=== PATIENT | male | born 1945 | race Caucasian/White ===

== ENCOUNTER → 2017-03-05 | Outpatient (CLI) | payer MEDICARE, BC ==
[~2017-03-05] MED LIST: REGADENOSON 0.4 MG/5 ML SYRINGE ONE
== END | disposition home or self-care (01) ==
LOC: CFH 08:12
PROVIDERS: ATTEND Internal Medicine Cardiovascular Disease
DX: I25.10 Atherosclerotic heart disease of native coronary artery without angina pectoris (principal); Z95.5 Presence of coronary angioplasty implant and graft
CPT/HCPCS: 78452; 93017; A9502; J2785

== ENCOUNTER → 2017-10-02 | Outpatient (CLI) | payer MEDICARE, BC ==
[~2017-10-02] MED LIST changes: +GADOBUTROL 7.5 MMOL/7.5 ML PFS ONE; -REGADENOSON 0.4 MG/5 ML SYRINGE ONE
== END | disposition home or self-care (01) ==
LOC: CFH 07:08
PROVIDERS: ATTEND Psychiatry & Neurology Neurology
DX: R41.3 Other amnesia (principal); Z98.890 Other specified postprocedural states
CPT/HCPCS: 70553; 82565; A9585

== ENCOUNTER → 2018-09-25 | Outpatient (CLI) | payer MEDICARE, BC ==
[~2018-09-25] MED LIST changes: +ASPI-496 PO; -GADOBUTROL 7.5 MMOL/7.5 ML PFS ONE; +LISI5TAB7 PO; +LOVA40TA2 PO; +METF500T17 PO; +METO50TA82 PO; +NITR0.4T SL; +OCTR50DI2 INJ; +OXYB15TA PO
[2018-09-25 10:04] LABS: BASOPHILS # (AUTO) 0.06 x10^3/uL (0-0.1); BASOPHILS % (AUTO) 1 % (0-1); EOSINOPHILS # (AUTO) 0.09 x10^3/uL (0-0.4); EOSINOPHILS % (AUTO) 1 % (1-7); LYMPHOCYTES # (AUTO) 1.48 x10^3/uL (1-3.4); LYMPHOCYTES % (AUTO) 20 % (22-44); MD NO; MEAN CORPUSCULAR HEMOGLOBIN 30.4 pg (27.5-34.5); MEAN CORPUSCULAR HGB CONC 32.9 g/dL (33.2-36.2); MEAN CORPUSCULAR VOLUME 92.4 fL (81-97); MEAN PLATELET VOLUME 9.6 fL (7.4-10.4); MONOCYTES # (AUTO) 0.69 x10^3/uL (0.2-0.8); MONOCYTES % (AUTO) 9 % (2-9); NEUTROPHILS # (AUTO) 5.15 x10^3/uL (1.8-6.8); NEUTROPHILS % (AUTO) 69 % (42-75); PLATELET COUNT 226 x10^3/uL (130-400); RED BLOOD COUNT 4.45 x10^6/uL (4.38-5.82); RED CELL DISTRIBUTION WIDTH 14.8 % (9.4-14.8)
[2018-09-25 10:14] LABS: ANION GAP 5 mmol/L (5-15); CALCIUM 8.4 mg/dL (8.5-10.1); CHLORIDE 110 mmol/L (98-107); CREATININE 0.85 mg/dL (0.7-1.3)
[2018-09-25 10:15] LABS: INTERNATIONAL NORMALIZED RATIO 0.99 (0.93-1.1); PROTHROMBIN TIME 10.5 Seconds (9.6-11.5)
== END | disposition home or self-care (01) ==
LOC: STAR 08:59
PROVIDERS: ATTEND Internal Medicine Cardiovascular Disease
DX: Z01.818 Encounter for other preprocedural examination (principal); I10 Essential (primary) hypertension; E11.9 Type 2 diabetes mellitus without complications; R06.02 Shortness of breath
CPT/HCPCS: 36415; 71046; 80048; 85025; 85610; 85730

== ENCOUNTER 2018-09-29 09:04 | Inpatient (IN) | payer MEDICARE, BC ==
[2018-09-25 09:33] VITALS: BP 152/80
[~2018-09-29] VITALS: Ht 180.3 cm; Wt 76.4 kg
[~2018-09-29 09:04] MED LIST changes: -NITR0.4T SL
[2018-09-29] MEDS ORDERED: SODIUM CHLORIDE 0.9% 1,000 ML IV ONE (09:17)
[2018-09-29] MEDS ORDERED: DIPHENHYDRAMINE 50 MG/ML, 1ML IVPush ONE (09:30)
[2018-09-29] MEDS ORDERED: NITR0.4T SL (09:38)
[2018-09-29] MEDS ORDERED: BIVALIRUDIN 250 MG ONE ×2 (10:42→12:22)
[2018-09-29] MEDS ORDERED: VERAPAMIL 2.5 MG/ML, 2ML ONE (10:42)
[2018-09-29] MEDS ORDERED: FENTANYL PF 100 MCG/2ML ONE (10:42)
[2018-09-29] MEDS ORDERED: LIDOCAINE 2%, 20ML ONE (10:42)
[2018-09-29] MEDS ORDERED: MIDAZOLAM 1 MG/ML, 5ML ONE (10:42)
[2018-09-29] MEDS ORDERED: HEPARIN 1,000 UNITS/ML, 10ML ONE (10:42)
[2018-09-29] MEDS ORDERED: NITROGLYCERIN 5 MG/ML, 10ML ONE (10:42)
[2018-09-29] MEDS ORDERED: DIPHENHYDRAMINE 50 MG/ML, 1ML ONE (11:15)
[2018-09-29] MEDS ORDERED: TICAGRELOR 90 MG TABLET ONE (11:53)
[2018-09-29] MEDS ORDERED: BIVALIRUDIN 250 MG in DEXTROSE 5% 100 ML IV SCH (12:17)
[2018-09-29] MEDS ORDERED: NITROGLYCERIN 0.4 MG BOTTLE (25 TABS) SL PRN (12:30)
[2018-09-29] MEDS ORDERED: ACETAMINOPHEN 325 MG TABLET PO PRN (12:30)
[2018-09-29] MEDS ORDERED: ZOLPIDEM 5MG TABLET PO PRN (12:30)
[2018-09-29] MEDS ORDERED: ONDANSETRON 2MG/ML, 2ML IVPush PRN (12:30)
[2018-09-29 16:23] VITALS: BP 103/66
[2018-09-29] MEDS: SODIUM CHLORIDE 0.9% 1,000 ML IV SCH ×2 (16:36→20:17)
[2018-09-29] MEDS: LISINOPRIL 5 MG TABLET PO SCH (16:36)
[2018-09-29] MEDS: ASPIRIN 81 MG TABLET EC PO SCH (16:36)
[2018-09-29 20:00] VITALS: BP 149/83
[2018-09-29] MEDS: METOPROLOL TARTRATE 50 MG TABLET PO SCH (20:05)
[2018-09-29] MEDS: TICAGRELOR 90 MG TABLET PO SCH (20:05)
[2018-09-29] MEDS ORDERED: LOVASTATIN 40 MG TABLET PO SCH (21:00)
[2018-09-30 00:40] VITALS: BP 131/79
[2018-09-30 04:48] LABS: ANION GAP 5 mmol/L (5-15); CALCIUM 8.2 mg/dL (8.5-10.1); CHLORIDE 108 mmol/L (98-107)
[2018-09-30 04:50] LABS: CREATININE 0.86 mg/dL (0.7-1.3)
[2018-09-30 07:13] VITALS: BP 119/75
[2018-09-30] MEDS: ASPIRIN 81 MG TABLET EC PO SCH (08:02)
[2018-09-30] MEDS: METOPROLOL TARTRATE 50 MG TABLET PO SCH (08:02)
[2018-09-30] MEDS: LISINOPRIL 5 MG TABLET PO SCH (08:02)
[2018-09-30] MEDS: TICAGRELOR 90 MG TABLET PO SCH (08:02)
[2018-09-30] MEDS ORDERED: TICA90TA PO (10:51)
[2018-09-30] MEDS ORDERED: ATOR40TA78 PO (10:51)
== END 2018-09-30 12:13 | disposition home or self-care (01) | DRG 246 ==
LOC: CACL 09:04 → ORIP 12:17 → 5SO 16:22 → DCLOUNGE 09-30 12:00
PROVIDERS: ADMIT Internal Medicine Cardiovascular Disease; ATTEND Internal Medicine Cardiovascular Disease
PROC: 027034Z Dilation of Coronary Artery, One Artery with Drug-eluting Intraluminal Device, Percutaneous Approach (ICD-10-PCS; principal; 2018-09-29)
PROC: B2111ZZ Fluoroscopy of Multiple Coronary Arteries using Low Osmolar Contrast (ICD-10-PCS; 2018-09-29)
PROC: 4A023N7 Measurement of Cardiac Sampling and Pressure, Left Heart, Percutaneous Approach (ICD-10-PCS; 2018-09-29)
DX: T82.855A Stenosis of coronary artery stent, initial encounter (principal); I50.33 Acute on chronic diastolic (congestive) heart failure; I47.2 Ventricular tachycardia; I25.110 Atherosclerotic heart disease of native coronary artery with unstable angina pectoris; I10 Essential (primary) hypertension; Y83.1 Surgical operation with implant of artificial internal device as the cause of abnormal reaction of the patient, or of later complication, without mention of misadventure at the time of the procedure; I45.9 Conduction disorder, unspecified; I35.0 Nonrheumatic aortic (valve) stenosis; E78.5 Hyperlipidemia, unspecified; E11.9 Type 2 diabetes mellitus without complications; Z88.6 Allergy status to analgesic agent; Z88.8 Allergy status to other drugs, medicaments and biological substances; I11.0 Hypertensive heart disease with heart failure
CPT/HCPCS: 36415; 80048; 93005; 93454; 99156; 99157; C1769; C1894; C9600; G0378; J0583; J1644; J2250; J3010; J3490; C1725; C1874; C1887; J1200; Q9967

== ENCOUNTER → 2018-12-29 | Outpatient (CLI) | payer MEDICARE, BC ==
[~2018-12-29] MED LIST changes: +ATOR40TA78 PO; +NITR0.4T SL; +TICA90TA PO
[2018-12-29 13:07] LABS: BILIRUBIN, DIRECT 0.4 mg/dL (0.1-0.2); BILIRUBIN,INDIRECT 0.9 mg/dL (0.0-2.0); BILIRUBIN,TOTAL 1.3 mg/dL (0.2-1.0); CHOL/HDL RATIO 1.6; LDL/HDL RATIO 0.5 (0.5-3.0); TOTAL PROTEIN 7.3 g/dL (6.4-8.2)
== END | disposition home or self-care (01) ==
LOC: CFH 09:14
PROVIDERS: ATTEND Internal Medicine Cardiovascular Disease
DX: E78.2 Mixed hyperlipidemia (principal); I10 Essential (primary) hypertension
CPT/HCPCS: 36415; 80061; 80076

== ENCOUNTER 2019-10-27 08:46 | Outpatient (CLI) | payer MEDICARE, BC ==
[~2019-10-27 08:46] MED LIST changes: -NITR0.4T SL; +NITR0.4T41 SL; -OXYB15TA PO; +OXYB15TA18 PO
[2019-12-01] MEDS ORDERED: OCTR20VI3 IM (07:56)
[2019-12-02] MEDS ORDERED: METO-93 PO (08:59)
[2019-12-02] MEDS ORDERED: CLOP75TA PO (12:10)
== END 2019-10-27 23:59 | disposition home or self-care (01) ==
LOC: CFH 08:46
PROVIDERS: ATTEND Internal Medicine Cardiovascular Disease
DX: I08.3 Combined rheumatic disorders of mitral, aortic and tricuspid valves (principal); I10 Essential (primary) hypertension; E11.9 Type 2 diabetes mellitus without complications; I25.2 Old myocardial infarction
CPT/HCPCS: 93306

== ENCOUNTER → 2019-11-12 | Outpatient (CLI) | payer MEDICARE, BC ==
[~2019-11-12] MED LIST changes: +OXYB15TA PO; -OXYB15TA18 PO; +VISIPAQUE 320 MG/ML, 150ML BOTTLE ONE
[2019-11-12 13:14] LABS: CREATININE 0.69 mg/dL (0.7-1.3)
== END | disposition home or self-care (01) ==
LOC: CVU 11:37
PROVIDERS: ATTEND Internal Medicine Cardiovascular Disease
DX: I65.23 Occlusion and stenosis of bilateral carotid arteries (principal); I25.10 Atherosclerotic heart disease of native coronary artery without angina pectoris; I10 Essential (primary) hypertension; E11.9 Type 2 diabetes mellitus without complications
CPT/HCPCS: 36415; 71275; 74174; 82565; 93880; 94010; 94726; 94729; Q9967

== ENCOUNTER 2019-12-25 12:41 | Outpatient (CLI) | payer MEDICARE, BC ==
[~2019-12-25 12:41] MED LIST changes: +CLOP75TA PO; +METO-93 PO; +OCTR20VI3 IM; -OXYB15TA PO; +OXYB15TA18 PO; -VISIPAQUE 320 MG/ML, 150ML BOTTLE ONE
== END 2019-12-25 23:59 | disposition home or self-care (01) ==
LOC: CVU 12:41
PROVIDERS: ATTEND Internal Medicine Cardiovascular Disease
DX: I08.1 Rheumatic disorders of both mitral and tricuspid valves (principal); I65.29 Occlusion and stenosis of unspecified carotid artery; I11.9 Hypertensive heart disease without heart failure; E78.5 Hyperlipidemia, unspecified
CPT/HCPCS: 93306

== ENCOUNTER → 2020-11-29 | Outpatient (CLI) | payer MEDICARE, BC | END | disposition home or self-care (01) | LOC: CFH 10:47 | PROVIDERS: ATTEND Internal Medicine Cardiovascular Disease | DX: Z01.810 Encounter for preprocedural cardiovascular examination (principal); I08.1 Rheumatic disorders of both mitral and tricuspid valves; I11.9 Hypertensive heart disease without heart failure; R06.02 Shortness of breath; I65.29 Occlusion and stenosis of unspecified carotid artery | CPT/HCPCS: 93306 ==

== ENCOUNTER 2021-06-21 07:19 | Outpatient (CLI) | payer MEDICARE, BC ==
[2021-06-21 07:52] LABS: CHLORIDE 111 mmol/L (98-107)
[2021-06-21 07:53] LABS: ALANINE AMINOTRANSFERASE 37 U/L (12-78); ALBUMIN 3.4 g/dL (3.4-5.0); ANION GAP 3 mmol/L (5-15); CALCIUM 8.7 mg/dL (8.5-10.1); CREATININE 0.79 mg/dL (0.7-1.3)
[2021-06-21 07:55] LABS: ALKALINE PHOSPHATASE 72 U/L (45-117); BILIRUBIN,TOTAL 1.1 mg/dL (0.2-1.0); TOTAL PROTEIN 6.7 g/dL (6.4-8.2)
== END 2021-06-21 23:59 | disposition home or self-care (01) ==
LOC: LAB 07:19
PROVIDERS: ATTEND Internal Medicine Endocrinology, Diabetes & Metabolism
DX: E22.0 Acromegaly and pituitary gigantism (principal)
CPT/HCPCS: 36415; 80053; 84305